=== PATIENT | male | born 1975 | race Two or more races ===

== ENCOUNTER 2023-01-25 09:40 | Emergency (ER) | payer SELFPAY ==
[~2023-01-25] VITALS: Ht 180.3 cm; Wt 98.0 kg
[~2023-01-25 09:40] MED LIST: METH4PAK PO
[2023-01-25 10:21] VITALS: BP 156/94
[2023-01-25] MEDS ORDERED: cefTRIAXone W LIDOCAINE 1 GM IM IM ONE (11:30)
[2023-01-25] MEDS ORDERED: cefTRIAXone SOD 1,000 MG VL IM ONE (11:45)
[2023-01-25] MEDS ORDERED: DOXY-286 PO (11:54)
[2023-01-25] MEDS ORDERED: METR500T PO (11:54)
[2023-01-25] MEDS ORDERED: CHL12OR MT (11:56)
== END 2023-01-25 11:56 | disposition home or self-care (01) ==
LOC: ER 09:40
DX: K04.7 Periapical abscess without sinus (principal); Z90.49 Acquired absence of other specified parts of digestive tract
CPT/HCPCS: 96372; 99283; J0696